=== PATIENT | female | born 1990 | race American Indian/Alaskan Native ===

== ENCOUNTER 2019-03-30 10:47 | Inpatient (IN) | payer MEDICARE, OTHER ==
[2019-03-30] MEDS ORDERED: LACTATED RINGERS 1,000 ML IV ONE (11:20)
[2019-03-30] MEDS ORDERED: LACTATED RINGERS 1,000 ML ONE (11:23)
[2019-03-30] MEDS ORDERED: LACTATED RINGERS 1,000 ML IV SCH ×2 (12:00→14:00)
[2019-03-30 12:07] LABS: Benzodiazepines Screen,Urine PRESUMPTIVE NEGATIVE; Cannabinoid Screen,Urine PRESUMPTIVE NEGATIVE; Cocaine Screen,Urine PRESUMPTIVE NEGATIVE; Methadone Screen,Urine PRESUMPTIVE NEGATIVE; Opiate Screen,Urine PRESUMPTIVE NEGATIVE
[2019-03-30 12:19] LABS: Amphetamine Screen,Urine PRESUMPTIVE POSITIVE
[2019-03-30] MEDS ORDERED: AMPICILLIN/NS 2 GM/100 ML 2 GM/100 ML BAG IV ONE ×2 (12:41→12:53)
[2019-03-30] MEDS ORDERED: SUBLIMAZE ONE ×2 (12:42→16:13)
[2019-03-30] MEDS ORDERED: SUBLIMAZE IV ONE (12:50)
[2019-03-30 12:52] LABS: Basophils # (Auto) 0.2 K/mm3 (0.0-0.1); Basophils % (Auto) 1.2 % (0.0-1.8); Eosinophils # (Auto) 0.1 K/mm3 (0.0-0.4); Eosinophils % (Auto) 1.2 % (0.0-4.3); Hematocrit 31.7 % (30.3-42.9); Hemoglobin 10.3 gm/dl (10.1-14.3); Lymphocytes # (Auto) 1.9 K/mm3 (1.2-5.4); Lymphocytes % (Auto) 15.4 % (13.4-35.0); Mean Corpuscular HGB Conc 33 % (30-34); Mean Corpuscular Volume 74 fl (79-97); Monocytes # (Auto) 1.1 K/mm3 (0.0-0.8); Monocytes % (Auto) 8.8 % (0.0-7.3); Platelet Count 325 K/mm3 (140-440); Red Blood Count 4.32 M/mm3 (3.65-5.03); Red Cell Distribution Width 17.1 % (13.2-15.2)
[2019-03-30] MEDS ORDERED: PITOCin/NS 20 UNIT/1000ML DRIP 20,000 MILLIUNITS/1,000 ML BAG IV ONE (13:10)
--- NOTE | 2019-03-30 13:16 | History and Physical Report ---
History of Present Illness Date of examination: 03/30/19 Date of admission: 03/30/19 13:02 Chief complaint: contractions History of present illness: Patient reports contractions started at 7 am today, currently feeling them every 2-5 minutes, rated pain 6/10. She denies any LOF or VB. +FM. 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 denies: smoking, alcohol abuse, prescription drug abuse, IV drug use - Obstetrical History Expected Date of Delivery: 04/04/19 Actual Gestation: 39 Week(s) 2 Day(s) : 3 Para: 1 ( 01/31/2010 Boy 7#7 denies any complications) Hx # Term Pregnancies: 1 Spontaneous Abortions: 1 Induced : 0 Number of Living Children: 1 Medications and Allergies Allergies Allergy/AdvReac Type Severity Reaction Status Date / Time No Known Allergies Allergy Verified 03/30/19 10:58 Home Medications Medication Instructions Recorded Confirmed Last Taken Type No Known Home Medications [No 03/30/19 03/30/19 Unknown History Reported Home Medications] Active Meds: Active Medications Lactated Ringer's (Lactated Ringers) 1,000 mls @ 150 mls/hr IV DIRECT MONIQUE Ampicillin Sodium (Ampicillin/Ns 2 Gm/100 Ml) 2 gm in 100 mls @ 100 mls/hr IV ONCE ONE; Protocol Stop: 03/30/19 13:52 Oxytocin/Sodium Chloride (Pitocin/Ns 20 Unit/1000ml Drip) 20 units in 1,000 mls @ 125 mls/hr IV DIRECT MONIQUE Review of Systems All systems: negative Genitourinary: contractions - Vital Signs Vital signs: Vital Signs Pulse BP 113 H 137/86 03/30/19 10:54 03/30/19 10:54 Temp Pulse Resp BP Pulse Ox 98.2 F 101 H 22 137/86 100 03/30/19 11:10 03/30/19 13:07 03/30/19 11:10 03/30/19 10:54 03/30/19 13:07 - Physical Exam Breasts: Positive: normal Cardiovascular: Regular rate, Normal S1, Normal S2 Lungs: Positive: Clear to auscultation, Normal air movement Abdomen: Positive: normal appearance, soft, normal bowel sounds. Negative: distention, tenderness Genitourinary (Female): Positive: normal external genitalia, normal perenium Vulva: both: normal Vagina: Positive: normal moisture. Negative: discharge Cervix: Positive: discharge (white, small). Negative: lesion Uterus: Positive: normal size, normal contour Adnexa: both: normal Anus/Rectum: Positive: normal perianal skin. Negative: rectal mass, hemorrhoids Extremities: Positive: normal Deep Tendon Reflex Grade: Normal +2 - Obstetrical FHR: auscultation normal Uterine Contraction Monitor Mode: External Cervical Dilatation: 6 Cervical Effacement Percentage: 100 station: -1 Uterine Contraction Pattern: Regular Uterine Tone Measurement Phase: Contraction Uterine Contraction Intensity: Moderate Results Result Diagrams: 03/30/19 12:03 Abnormal lab results 03/30/19 Range/Units 12:03 WBC 12.4 H (4.5-11.0) K/mm3 MCV 74 L (79-97) fl MCH 24 L (28-32) pg RDW 17.1 H (13.2-15.2) % Monroe % (Auto) 8.8 H (0.0-7.3) % Monroe # 1.1 H (0.0-0.8) K/mm3 Baso # 0.2 H (0.0-0.1) K/mm3 Seg Neutrophils % 73.4 H (40.0-70.0) % Seg Neutrophils # 9.1 H (1.8-7.7) K/mm3 All other labs normal. Assessment and Plan Walk in patient 28y.o. IUP at 39w2d by stated EDC of 04/04/19 presents to triage with c/o contractions since 7 am. Pt reports she received PNC in [place] and recently moved to [place] to live with her father d/t medical reasons. Patient reports she received routine and appropriate care, first US performed at 8 wks gestation and confirmed EDC as stated above. She denies any complications with this or with prior /delivery. She did present to [facility] for c/o abdominal pain where she reports US was done and she was told "something about the placenta". US here today shows no previa per forge operator helper. No report available for review at this time-will inquire. Patient denies any vaginal bleeding or LOF. +FM. She denies any RANDALL, visual disturbances, chest pain, SOB, difficulty breathing, or any other complaints. Pt agrees to sign GIOVANNY for records from prior OB provider. panel drawn. Routine active labor orders in EMR with abx for unknown GBS. Pt bolusing for epidural at this time. Amp currently infusing. VSSAF. Anticipate . Dr. Jones aware of admission and assessment.
[2019-03-30] MEDS ORDERED: BRETHINE IVP PRN (13:27)
[2019-03-30] MEDS ORDERED: XYLOCAINE 2% INFILTRATI ONE (13:27)
[2019-03-30] MEDS ORDERED: MINERAL OIL PO PRN (13:27)
[2019-03-30] MEDS ORDERED: PITOCin/NS 20 UNIT/1000ML DRIP 20 UNITS/1,000 ML BAG IV SCH ×3 (14:00→20:00)
[2019-03-30] MEDS ORDERED: NARCAN 2 MG/2 ML IV PRN (14:18)
[2019-03-30] MEDS ORDERED: ZOFRAN ONE (14:18)
--- NOTE | 2019-03-30 14:18 | Anesthesia Consultation ---
Anesthesia Consult and Med Hx Date of service: 03/30/19 - Airway Anesthetic Teeth Evaluation: Good ROM Head & Neck: Adequate Mental/Hyoid Distance: Adequate Mallampati Class: Class III Intubation Access Assessment: Probably Good - Pulmonary Exam CTA: Yes - Cardiac Exam Cardiac Exam: RRR - Pre-Operative Health Status ASA Pre-Surgery Classification: ASA3 Proposed Anesthetic Plan: Epidural - Pulmonary Hx Smoking: No Hx Asthma: No Hx Respiratory Symptoms: No SOB: No COPD: No Home Oxygen Therapy: No Hx Pneumonia: No Hx Sleep Apnea: No - Cardiovascular System Hx Hypertension: No Hx Coronary Artery Disease: No Hx Heart Attack/AMI: No Hx Angina: No Hx Percutaneous Transluminal Coronary Angioplasty (PTCA): No Hx Cardia Arrhythmia: No Hx Pacemaker: No Hx Internal Defibrillator: No Hx Valvular Heart Disease: No Hx Heart Murmur: No Hx Peripheral Vascular Disease: No - Central Nervous System Hx Neuromuscular Disorder: No Hx Seizures: No CVA: No Hx Back Pain: Yes Hx Psychiatric Problems: No - Gastrointestinal Hx Ulcer: No Hx Gastroesophageal Reflux Disease: Yes - Endocrine Hx Renal Disease: No Hx End Stage Renal Disease: No Hx Cirrhosis: No Hx Liver Disease: No Hx Insulin Dependent Diabetes: No Hx Non-Insulin Dependent Diabetes: No Hx Thyroid Disease: No Hx Hypothyroidism: No Hx Hyperthyroidism: No - Hematic Hx Anemia: No Hx Sickle Cell Disease: No - Other Systems Hx Alcohol Use: No Hx Substance Use: No Hx Cancer: No Hx Obesity: Yes
--- NOTE | 2019-03-30 14:32 | Event Note ---
Date: 03/30/19 Spoke with SARA Thomas states pt had two decels after epidural but currently has Cat I tracing. O2sat is also 100% on room air. Will con't to monitor and anticipate vaginal delivery.
[2019-03-30] MEDS ORDERED: fentaNYL-BUPIV 2 MCG/ML-0.125% 200 MCG/100 ML BAG EPIDURAL SCH (15:00)
--- NOTE | 2019-03-30 15:11 | Ultrasound Report ---
OB ULTRASOUND >= 14 WEEKS FETUS INDICATION: No record; r/o previa COMPARISON: None FINDINGS: A single gestation intrauterine is present with cephalic presentation. The placenta is post erior, fundal and free of the cervical os. heart tones measure 147 bpm. Amniotic fluid volume is normal with a fluid index of 9.8. anatomical survey was not performed. Biparietal diameter is 9.1 cm which equals 37 weeks 0 days. Head circumference is 34.0 cm which equals 39 weeks 1 day. Abdominal circumference is 32.2 cm which equals 36 weeks 1 day. Femur length is 7.8 cm which equals 39 weeks 6 days. Overall estimated sonographic age is 38 weeks 0 days. HC/AC ratio: 1.05. Cephalic index: 80.9. Estimated weight: 3233 g +/- 4 178 g. Estimated weight percentile: 28. . IMPRESSION: Viable, single intrauterine as described. No acute abnormality. No evidence for placenta pr evia. Signer Name: Rob Ferreira Jr, MD Signed: 03/30/2019 3:06 PM Workstation Name: [id number]
[2019-03-30] MEDS ORDERED: MARCAINE 0.25% INFILTRATI ONE (16:13)
[2019-03-30] MEDS ORDERED: AMPICILLIN/NS 1 GM/50 ML 1 GM/50 ML BAG IV SCH (17:29)
[2019-03-30] MEDS ORDERED: CYTOTEC ONE (18:30)
[2019-03-30] MEDS ORDERED: METHERGINE IM ONE ×2 (18:30)
[2019-03-30] MEDS ORDERED: CYTOTEC PR ONE (18:30)
--- NOTE | 2019-03-30 18:53 | Procedure Note ---
OB Delivery Note - Delivery Date of Delivery: 03/30/19 Network Systems Integrator: IAN WILLIS Estimated blood loss: other (400) - Vaginal Delivery presentation: vertex Delivery position: OP (direct) Delivery induction: none Delivery augmentation: rupture of membranes Delivery monitor: external FHT, external uterine Route of delivery: Indicators for instrumentation: nonreassuring FHR tracing Delivery placenta: spontaneous Delivery cord: nuchal cord (tight x2, delivered through sommersault maneuver) Episiotomy: midline Delivery laceration: 1st degree Delivery repair: vicryl Anesthesia: local Delivery comments: Poor maternal pushing efforts d/t dense epidural block. FHTs remain 90-100s between pushes. head +[address] Jones notified to present to bedside for possible vacuum delivery. DWP possibility of episiotomy and/or vacuum. Procedure details, pros and cose discussed. Patient agrees to epi siotomy. Shallow ML episiotomy performed and delivery of head direct OP with next push. Tight nuchal x2, delivered through sommersault maneuver. placed skin to skin on maternal abdomen. Drying and stimulation produces vigorous cry. Dr. Jones present at bedside. Cord clamped x2 and cut. 1st degree repair in normal fashion. Placenta delivered complete and intact, 3vc. Pitocin to IV. Fundus is boggy, slight trickle of bleeding noted. manual sweep of LAKEISHA yields multiple small clots. Cytotec 800mcg VT given with pt permission. Fundus firm with massage. Hemostasis achieved. EBL 400 ml. VSSAF. Infant apgars 8/9. mother and remain LDR stable. patient reports she is comfortable. pericare done - A at 1 minute: 8 at 5 minutes: 9 Infant Gender: Male (3506g)
[2019-03-30] MEDS ORDERED: LANSINOH TP PRN (19:08)
[2019-03-30] MEDS ORDERED: TYLENOL PO PRN (19:08)
[2019-03-30] MEDS ORDERED: PHENERGAN PR PRN (19:08)
[2019-03-30] MEDS ORDERED: PHENERGAN PO PRN (19:08)
[2019-03-30] MEDS ORDERED: MILK OF MAGNESIA PO PRN (19:08)
[2019-03-30] MEDS ORDERED: ZOFRAN IV PRN (19:08)
[2019-03-30] MEDS ORDERED: TUCKS PAD TP PRN (19:08)
[2019-03-30] MEDS ORDERED: BENADRYL PO PRN (19:08)
[2019-03-30] MEDS ORDERED: DULCOLAX PR PRN (19:08)
[2019-03-30] MEDS ORDERED: SODIUM CHLORIDE FLUSH SYRINGE 10 ML IV NR (20:00)
--- NOTE | 2019-03-30 21:55 | Event Note ---
Date: 03/30/19 late entry DWP UDS positive for amphetamines. Pt denies any illegal drug use. Reports taking Zantac 150mg PO BID for acid reflux, last dose this morning prior to arrival to triage.
[2019-03-30] MEDS: PEPCID PO SCH (22:26)
[2019-03-30] MEDS: IBUPROFEN PO SCH (22:26)
[2019-03-31] MEDS: IBUPROFEN PO SCH ×3 (04:38→17:38)
--- NOTE | 2019-03-31 06:55 | Discharge Summary ---
Providers - Providers Date of Admission: 03/30/19 13:02 Date of discharge: 03/31/19 (pt req d/c today if baby goes) Attending physician: NICOLAS SHRESTHA 03/30/19 19:12 Consult to Mold Washer [CONS] Routine Reason For Exam: assistance with , SNS Primary care physician: DIRECTOR [employer] Hospitalization Reason for admission: active labor Delivery: Episiotomy: none Laceration: none Incision: normal Other procedures: none complications: none Discharge diagnosis: IUP at term delivered baby: male (desires circ explained our policy EMLA cream RX done) Hospital course: walk-in uncomplicated vaginal delivery Pt resting No c/o voiced VSS FF below umb Lochia small perineum intact H&H pend ing Doing well s/p vag delivery P: d/c today per pt req Pt desires to f/u with [facility] Information provided. Condition at discharge: Good Disposition: DC-01 TO HOME OR SELFCARE - Discharge Diagnoses (1) Spontaneous vaginal delivery Status: Acute Comment: RTO 4 weeks PP care Plan - Discharge Medications Prescriptions: Lidocain2.5%/Prilocai2.5% [Emla] 5 gm TP PRN #1 tube - Provider Discharge Summary Activity: routine, no sex for 6 weeks, no heavy lifting 4 weeks, no strenuous exercise Diet: routine Instructions: routine Additional instructions: [] Smoking cessation referral if applicable(refer to patient education folder for contact #) [] Refer to [facility]'s [facility] Booklet Call your doctor immediately for: * Fever > 100.5 * Heavy vaginal bleeding ( >1 pad per hour) * Severe persistent headache * Shortness of breath * Reddened, hot, painful area to leg or breast * Drainage or odor from incision. * Keep incision clean and dry at all times and follow doctor's instructions regarding bathing/showering - Follow up plan Follow up: PRIMARY CARE, [Primary Care Provider] - 7 Days CRISTY BATISTA CNM [Advanced Practice Nurse] - 7 Days (Congratulations! Please call [phone] to schedule your visit in 4 weeks and your son's circumcision in 1 week. Bring the EMLA cream with you to his visit. Do NOT use at home. Call with concerns. [facility] [address] [place] [id number])
[2019-03-31 08:33] LABS: Hematocrit 27.6 % (30.3-42.9); Hemoglobin 9.1 gm/dl (10.1-14.3)
[2019-03-31] MEDS ORDERED: PRENATAL VITAMIN PO SCH (10:00)
[2019-03-31] MEDS: PEPCID PO SCH (12:01)
[2019-03-31 18:00] VITALS: BP 121/65
[2019-03-31] MEDS ORDERED: PEPCID IV SCH (19:00)
[2019-03-31] MEDS ORDERED: BOOSTRIX IM ONE (19:08)
== END 2019-03-31 21:45 | disposition home or self-care (01) | DRG 806 ==
LOC: TRG 10:47 → LD 13:02 → OB 20:33
PROVIDERS: ADMIT Obstetrics & Gynecology; ATTEND Obstetrics & Gynecology
PROC: 10E0XZZ Delivery of Products of Conception, External Approach (ICD-10-PCS; principal; 2019-03-30)
PROC: 0HQ9XZZ Repair Perineum Skin, External Approach (ICD-10-PCS; 2019-03-30)
PROC: 0W8NXZZ Division of Female Perineum, External Approach (ICD-10-PCS; 2019-03-30)
PROC: 3E0S3BZ Introduction of Anesthetic Agent into Epidural Space, Percutaneous Approach (ICD-10-PCS; 2019-03-30)
PROC: 00HU33Z Insertion of Infusion Device into Spinal Canal, Percutaneous Approach (ICD-10-PCS; 2019-03-30)
DX: O76 Abnormality in fetal heart rate and rhythm complicating labor and delivery (principal); O99.324 Drug use complicating childbirth; Z37.0 Single live birth; D62 Acute posthemorrhagic anemia; O99.62 Diseases of the digestive system complicating childbirth; K21.9 Gastro-esophageal reflux disease without esophagitis; O99.214 Obesity complicating childbirth; E66.9 Obesity, unspecified; O69.81X0 Labor and delivery complicated by cord around neck, without compression, not applicable or unspecified; F15.90 Other stimulant use, unspecified, uncomplicated; O70.0 First degree perineal laceration during delivery; Z3A.39 39 weeks gestation of pregnancy
CPT/HCPCS: 36415; 76805; 80307; 85014; 85018; 85025; 86592; 86706; 86762; 86850; 86900; 86901; 87806; G0378; A6250; J0290; J2210; J2405; J2590; J3010; J7120

== ENCOUNTER 2019-05-24 11:02 | Emergency (ER) | payer MEDICARE ==
[2019-05-24 11:09] VITALS: BP 164/91
--- NOTE | 2019-05-24 11:13 | Event Note ---
ED Screening Note Date of service: 05/24/19 Time: 11:08 ED Screening Note: This is a 28 y.o. F. that presents to the ER with low back pain since giving 03/30/19. LMP 05/04/2019 Patient was prescribed medication for depression from another HAND BASEBALL SEWER office. Instructed to follow up with HAND BASEBALL SEWER. This initial assessment/diagnostic orders/clinical plan/treatment(s) is/are subject to change based on patients health status, clinical progression and re- assessment by fellow clinical providers in the ED. Further treatment and workup at subsequent clinical providers discretion. Patient/guardian urged not to elope from the ED as their condition may be serious if not clinically assessed and managed. Initial orders include: UA, urinalysis, and L-spine.
[2019-05-24 11:57] LABS: Bacteria,Urine 1+ /HPF (Negative); Bilirubin,Urine NEG (Negative); Blood,Urine NEG (Negative); Color,Urine Straw (Yellow); HCG Qualitative,Urine Negative (Negative); Mucus,Urine FEW /HPF; Protein,Urine <15 mg/dL mg/dL (Negative); Urobilinogen,Urine < 2.0 mg/dL (<2.0)
[2019-05-24] MEDS ORDERED: IBUPROFEN PO ONE (12:12)
[2019-05-24] MEDS ORDERED: ULTRAM PO ONE (12:12)
--- NOTE | 2019-05-24 12:47 | Emergency Department Report ---
ED Abdominal Pain HPI - General Chief Complaint: Back Pain/Injury Stated Complaint: BACK PAIN Time Seen by Provider: 05/24/19 11:08 Source: patient Mode of arrival: Ambulatory Limitations: No Limitations - History of Present Illness Initial Comments: Patient is a 28-year-old female who is presenting to the emergency department with a chronic back pain. Patient had a epidural and spontaneous vaginal delivery mid-March of this year. Patient has been having some lower back pain since. She denies fever any focal neurological deficits, pain radiating down the legs urinary ache incontinence or retention or fecal incontinence. Patient states she's saw another physician who stated that they couldn't help her since her last medical care was at our hospital. Patient does not have a report of her epidural. Severity scale (0 -10): 10 - Related Data Previous Rx's Medication Instructions Recorded Last Taken Type Lidocain2.5%/Prilocai2.5% [Emla] 5 gm TP PRN #1 tube 03/31/19 Unknown Rx Allergies Allergy/AdvReac Type Severity Reaction Status Date / Time No Known Allergies Allergy Verified 05/24/19 11:09 ED Review of Systems ROS: Stated complaint: BACK PAIN Other details as noted in HPI Comment: All other systems reviewed and negative ED Past Medical Hx - Past Medical History Previous Medical History?: No Hx Hypertension: No Hx Heart Attack/AMI: No Hx Congestive Heart Failure: No Hx Diabetes: No Hx Deep Vein Thrombosis: No Hx Liver Disease: No Hx Renal Disease: No Hx Sickle Cell Disease: No Hx Seizures: No Hx Asthma: No Hx COPD: No Hx HIV: No - Surgical History Past Surgical History?: Yes Hx Pacemaker: No Hx Internal Defibrillator: No Hx Cholecystectomy: Yes Additional Surgical History: hernia repair - Social History Smoking Status: Never Smoker Substance Use Type: None - Medications Home Medications: Home Medications Medication Instructions Recorded Confirmed Last Taken Type Lidocain2.5%/Prilocai2.5% [Emla] 5 gm TP PRN #1 tube 03/31/19 Unknown Rx ED Physical Exam - General Limitations: No Limitations General appearance: alert, in no apparent distress - Head Head exam: Present: atraumatic, normocephalic - Eye Eye exam: Present: normal appearance, PERRL, EOMI - ENT ENT exam: Present: mucous membranes moist - Neck Neck exam: Present: normal inspection - Respiratory Respiratory exam: Present: normal lung sounds bilaterally. Absent: respiratory distress, wheezes, rales, rhonchi - Cardiovascular Cardiovascular Exam: Present: regular rate, normal rhythm, normal heart sounds. Absent: systolic murmur, diastolic murmur, rubs, gallop - GI/Abdominal GI/Abdominal exam: Present: soft, normal bowel sounds. Absent: distended, tenderness, guarding, rebound - Extremities Exam Extremities exam: Present: normal inspection - Back Exam Back exam: Present: normal inspection, paraspinal tenderness, vertebral tenderness (lumbar tenderness. There is no masses overlying erythema to the lower back. There is no specific areas of point tenderness.) - Neurological Exam Neurological exam: Present: alert, oriented X3 - Psychiatric Psychiatric exam: Present: normal affect, normal mood - Skin Skin exam: Present: warm, dry, intact, normal color. Absent: rash ED Course Vital Signs 05/24/19 11:07 Temperature 97.6 F Pulse Rate 110 H Respiratory 16 Rate Blood Pressure 164/91 O2 Sat by Pulse 100 Oximetry ED Medical Decision Making - Lab Data Lab Results 05/24/19 Range/Units 11:32 Urine Color Straw (Yellow) Urine Turbidity Clear (Clear) Urine pH 6.0 (5.0-7.0) Ur Specific [place] 1.009 (1.003-1.030) Urine Protein <15 mg/dl (Negative) mg/dL Urine Glucose (UA) Neg (Negative) mg/dL Urine Ketones Neg (Negative) mg/dL Urine Blood Neg (Negative) Urine Nitrite Neg (Negative) Ur Reducing Substances Not Reportable Urine Bilirubin Neg (Negative) Urine Ictotest Not Reportable Urine Urobilinogen < 2.0 (<2.0) mg/dL Ur Leukocyte Esterase Neg (Negative) Urine WBC (Auto) 1.0 (0.0-6.0) /HPF Urine RBC (Auto) 2.0 (0.0-6.0) /HPF U Epithel Cells (Auto) 2.0 (0-13.0) /HPF Urine Bacteria (Auto) 1+ (Negative) /HPF Urine Mucus Few /HPF Urine HCG, Qual Negative (Negative) - Medical Decision Making Urinalysis was performed to rule out infection. Patient states when she saw another physician several weeks ago she did have a UTI. Urinalysis done to ensure that this is resolved. UTI has resolved. Patient and her became angry. They stated that they wanted to have an MRI done today which we told the patient that because she does not meet criteria for possible cauda equina of that MRI will be done as an outpatient. Patient's and her have left emergency Department. The patient was to be discharged after this conversation with follow-up with for possible MRI however they have not stay for the paperwork. Critical care attestation.: If time is entered above; I have spent that time in minutes in the direct care of this critically ill patient, excluding procedure time. ED Disposition Clinical Impression: Chronic back pain Disposition: DC-01 TO HOME OR SELFCARE Is pt being admited?: No Does the pt Need Aspirin: No Condition: Stable Referrals: PRIMARY CARE, [Primary Care Provider] - 3-5 Days Time of Disposition: 12:49
== END 2019-05-24 12:53 | disposition home or self-care (01) ==
LOC: ED 11:02
DX: M54.5 Low back pain (principal); G89.29 Other chronic pain; Z90.49 Acquired absence of other specified parts of digestive tract; Z98.890 Other specified postprocedural states
CPT/HCPCS: 81001; 81025; 99283

== ENCOUNTER 2019-08-26 16:09 | Emergency (ER) | payer MEDICARE ==
[2019-08-26 17:27] VITALS: BP 137/86
--- NOTE | 2019-08-26 17:32 | Event Note ---
ED Screening Note Date of service: 08/26/19 Time: 17:27 ED Screening Note: This is a 28 y.o. F. that presents to the ER with cough, diarrhea, and diffuse abdominal pain for 1 week. This initial assessment/diagnostic orders/clinical plan/treatment(s) is/are subject to change based on patients health status, clinical progression and re- assessment by fellow clinical providers in the ED. Further treatment and workup at subsequent clinical providers discretion. Patient/guardian urged not to elope from the ED as their condition may be serious if not clinically assessed and managed. Initial orders include: Labs
[2019-08-26 18:26] LABS: Bacteria,Urine 4+ /HPF (Negative); Bilirubin,Urine NEG (Negative); Blood,Urine SM (Negative); Color,Urine Yellow (Yellow); Mucus,Urine 2+ /HPF; Urobilinogen,Urine < 2.0 mg/dL (<2.0)
== END 2019-08-26 18:22 ==
LOC: ED 16:09
DX: R05 Cough (principal); R10.9 Unspecified abdominal pain; R19.7 Diarrhea, unspecified; Z53.21 Procedure and treatment not carried out due to patient leaving prior to being seen by health care provider
CPT/HCPCS: 81001; 87076; 87086; 87186

== ENCOUNTER 2019-11-01 12:52 | Emergency (ER) | payer MEDICARE ==
[2019-11-01 13:48] VITALS: BP 150/94
[2019-11-01] MEDS ORDERED: ACETAMINOPHEN 325 MG TAB PO ONE (15:50)
--- NOTE | 2019-11-01 15:50 | Event Note ---
{null, ED Screening Note ED Screening Note: pt presents middle abd pain that began a couple days ago no n/v/d LNMP: 2-3 months ago she is not sure if she is states she had a baby in March she took test at home and they are positive has not seen an wedding consultant /P:2/A:1 This initial assessment/diagnostic orders/clinical plan/treatment(s) is/are subject to change based on patients health status, clinical progression and re- assessment by fellow clinical providers in the ED. Further treatment and workup at subsequent clinical providers discretion. Patient/guardian urged not to elope from the ED as their condition may be serious if not clinically assessed and managed. Initial orders include: US, UA, labs }
[2019-11-01] MEDS ORDERED: ACETAMINOPHEN 325 MG TAB ONE (15:52)
[2019-11-01 16:37] LABS: Basophils # (Auto) 0.1 K/mm3 (0.0-0.1); Basophils % (Auto) 0.4 % (0.0-1.8); Eosinophils # (Auto) 0.1 K/mm3 (0.0-0.4); Eosinophils % (Auto) 0.4 % (0.0-4.3); Hemoglobin 10.7 gm/dl (10.1-14.3); Lymphocytes # (Auto) 1.7 K/mm3 (1.2-5.4); Lymphocytes % (Auto) 14.1 % (13.4-35.0); Mean Corpuscular HGB Conc 34 % (30-34); Mean Corpuscular Volume 72 fl (79-97); Monocytes # (Auto) 0.6 K/mm3 (0.0-0.8); Monocytes % (Auto) 4.8 % (0.0-7.3); Platelet Count 351 K/mm3 (140-440); Red Blood Count 4.42 M/mm3 (3.65-5.03); Red Cell Distribution Width 17.8 % (13.2-15.2)
[2019-11-01 16:59] LABS: Alanine Aminotransferase 20 units/L (7-56); BUN/Creatinine Ratio 14; Blood Urea Nitrogen 7 mg/dL (7-17); Calcium 9.5 mg/dL (8.4-10.2); Hemolysis Index 0
[2019-11-01 17:08] LABS: Bilirubin,Urine NEG (Negative); Blood,Urine NEG (Negative); Color,Urine Yellow (Yellow); Mucus,Urine 2+ /HPF; Urobilinogen,Urine < 2.0 mg/dL (<2.0)
--- NOTE | 2019-11-01 17:11 | Ultrasound Report ---
{null, US OB >= 14 weeks Fetus INDICATION / CLINICAL INFORMATION: abd pain, lnmp 2-3 months ago. COMPARISON: None available. FINDINGS: Viable single intrauterine gestation is demonstrated in the cephalic presentation. heart rate 155 bpm The placenta is anterior and free of the os. Amniotic fluid volume is subjectively normal. measurements: BPD 3.4 equal to 16 weeks 3 days Head circumference 12.6 equal to 16 weeks 2 days Abdominal circumference 10.5 equal to 16 weeks 3 days Femur length 2.1 equals to 16 weeks 3 days IMPRESSION: 1. Viable single 16 weeks 3 day intrauterine gestation. Signer Name: Manan Grijalva MD Signed: 11/01/2019 5:07 PM Workstation Name: [id number] }
== END 2019-11-01 18:31 | disposition left against medical advice (07) ==
LOC: ED 12:52
DX: R10.9 Unspecified abdominal pain (principal); Z53.21 Procedure and treatment not carried out due to patient leaving prior to being seen by health care provider
CPT/HCPCS: 36415; 76805; 80053; 81001; 84702; 85025